=== PATIENT | female | born 1995 | race Caucasian/White ===

== ENCOUNTER 2022-08-14 10:37 | Emergency (ER) | payer OTHER ==
[~2022-08-14] VITALS: Ht 157.5 cm; Wt 72.1 kg
[2022-08-14] MEDS ORDERED: CLARITIN5 MG PO (10:58)
[2022-08-14] MEDS ORDERED: PROAIR RESPICL90 MCG IH (10:58)
== END 2022-08-14 14:55 | disposition home or self-care (01) ==
LOC: ER 10:37
DX: K29.70 Gastritis, unspecified, without bleeding (principal); Z20.822 Contact with and (suspected) exposure to COVID-19

== ENCOUNTER 2022-09-28 23:22 | Emergency (ER) | payer OTHER ==
[~2022-09-28] VITALS: Ht 157.5 cm; Wt 71.7 kg
[~2022-09-28 23:22] MED LIST: CLARITIN5 MG PO; PROAIR RESPICL90 MCG IH
[2022-09-28] MEDS ORDERED: CLARITIN10 M1 PO (23:59)
[2022-09-29] MEDS ORDERED: TENCON 50-3251 EACH PO ×2 (04:24→04:26)
== END 2022-09-29 04:35 ==
LOC: ER 23:22
DX: G43.109 Migraine with aura, not intractable, without status migrainosus (principal)

== ENCOUNTER 2023-06-28 11:24 | Outpatient (CLI) | payer OTHER ==
[~2023-06-28 11:24] MED LIST changes: +CLARITIN10 M1 PO; +TENCON 50-3251 EACH PO
[2023-06-28 11:46] LABS: HEMATOCRIT 39.3 % (36.0-45.00); HEMOGLOBIN 13.1 g/dL (12.0-15.00); MEAN CELL VOLUME 77.2 fL (80.00-100.00); MEAN CORPUSCULAR HEMOGLOBIN 25.7 pg (27.00-32.0); MEAN CORPUSCULAR HGB CONC 33.2 g/dl (32.0-36.0); PLATELET COUNT 342 K/uL (150-450); RED BLOOD COUNT 5.09 M/uL (4.00-6.00); RED CELL DISTRIBUTION WIDTH 13.8 % (11.5-14.5)
[2023-06-28 12:44] LABS: MYCOPLASMA PNEUMONIAE IGM NON REACTIVE (NO REACTIVE)
== END 2023-06-28 11:25 | disposition home or self-care (01) ==
LOC: LAB 11:24
DX: U07.1 COVID-19 (principal); R50.9 Fever, unspecified

== ENCOUNTER 2023-10-25 09:48 | Emergency (ER) | payer OTHER ==
[~2023-10-25] VITALS: Ht 157.5 cm; Wt 72.1 kg
[2023-10-25] MEDS ORDERED: VERAPAMIL HCL120 M3 PO (10:28)
[2023-10-25] MEDS ORDERED: ETODOLAC400 MG PO (10:29)
[2023-10-25] MEDS ORDERED: MONTELUKAST SOD10 MG PO (10:29)
[2023-10-25] MEDS ORDERED: ELETRIPTAN HBR40 MG PO (10:30)
[2023-10-25 11:15] LABS: HEMATOCRIT 40.7 % (36.0-45.00); HEMOGLOBIN 13.8 g/dL (12.0-15.00); MEAN CELL VOLUME 77.8 fL (80.00-100.00); MEAN CORPUSCULAR HEMOGLOBIN 26.4 pg (27.00-32.0); MEAN CORPUSCULAR HGB CONC 33.9 g/dl (32.0-36.0); PLATELET COUNT 284 K/uL (150-450); RED BLOOD COUNT 5.23 M/uL (4.00-6.00); RED CELL DISTRIBUTION WIDTH 13.2 % (11.5-14.5)
[2023-10-25 11:23] LABS: URINE APPEARANCE Cloudy; URINE BILIRRUBIN Negative (NEGATIVE); URINE BLOOD NHT; URINE COLOR Yellow; URINE GLUCOSE Negative (NEGATIVE); URINE LEUKOCYTE Negative; URINE NITRATE Negative; URINE PROTEIN Negative (NEGATIVE); URINE UROBILINOGEN 0.2 E.U./dl
[2023-10-25 11:27] LABS: URINE EPITHELIAL CELLS 39.8 uL (0.0-38.8); URINE RBC 84.9 uL (0.0-20.8); URINE WBC 106.6 uL (0.0-23.2)
[2023-10-25 11:31] LABS: URINE BACTERIA > 9821.5 uL (0.0-1933)
[2023-10-25 11:47] LABS: CALCIUM 9.2 mg/dL (8.5-10.1); CREATININE SERUM 0.8 mg/dL (0.55-1.02); GFR 85.41; POTASSIUM 3.78 mEq/L (3.5-5.1)
[2023-10-25] MEDS ORDERED: KETOROLAC TROMETHAMINE 30 MG VIAL IM STA (12:09)
== END 2023-10-25 12:36 | disposition home or self-care (01) ==
LOC: ER 09:48
PROVIDERS: General Practice
DX: N39.0 Urinary tract infection, site not specified (principal)

== ENCOUNTER 2023-12-12 07:39 | Emergency (ER) | payer OTHER ==
[~2023-12-12] VITALS: Ht 157.5 cm; Wt 72.1 kg
[~2023-12-12 07:39] MED LIST changes: +ELETRIPTAN HBR40 MG PO; +ETODOLAC400 MG PO; +MONTELUKAST SOD10 MG PO; +VERAPAMIL HCL120 M3 PO
[2023-12-12] MEDS ORDERED: VERELAN PM100 MG (08:00)
[2023-12-12] MEDS ORDERED: METHYLPREDNISOLONE SOD SUCC 125 MG VIAL IM ONE (08:15)
[2023-12-12] MEDS ORDERED: CEFTRIAXONE SODIUM 1,000 MG VIAL IM ONE (08:15)
[2023-12-12] MEDS ORDERED: DIPHENHYDRAMINE HCL 50 MG/ML VIAL 1ML IM ONE (08:15)
[2023-12-12] MEDS ORDERED: KETOROLAC TROMETHAMINE 60 MG VIAL IM ONE (08:45)
[2023-12-12 09:06] LABS: HEMATOCRIT 41.1 % (36.0-45.00); HEMOGLOBIN 13.8 g/dL (12.0-15.00); MEAN CELL VOLUME 77.1 fL (80.00-100.00); MEAN CORPUSCULAR HEMOGLOBIN 25.9 pg (27.00-32.0); MEAN CORPUSCULAR HGB CONC 33.6 g/dl (32.0-36.0); PLATELET COUNT 363 K/uL (150-450); RED BLOOD COUNT 5.32 M/uL (4.00-6.00); RED CELL DISTRIBUTION WIDTH 14.4 % (11.5-14.5)
== END 2023-12-12 09:39 | disposition home or self-care (01) ==
LOC: ER 07:39
PROVIDERS: General Practice
DX: S90.862A Insect bite (nonvenomous), left foot, initial encounter (principal); W57.XXXA Bitten or stung by nonvenomous insect and other nonvenomous arthropods, initial encounter; Y93.89 Activity, other specified; Y99.8 Other external cause status; Z87.09 Personal history of other diseases of the respiratory system; I10 Essential (primary) hypertension

== ENCOUNTER 2023-12-17 16:26 | Emergency (ER) | payer OTHER ==
[~2023-12-17] VITALS: Ht 157.5 cm; Wt 72.1 kg
[~2023-12-17 16:26] MED LIST changes: +VERELAN PM100 MG
[2023-12-17] MEDS ORDERED: CLINDAMYCIN PHOSPHATE 150 MG/ML (600mg) IM STA (20:03)
== END 2023-12-17 21:09 | disposition home or self-care (01) ==
LOC: ER 16:27
DX: L03.116 Cellulitis of left lower limb (principal)

== ENCOUNTER 2024-05-28 18:06 | Emergency (ER) | payer OTHER ==
[~2024-05-28] VITALS: Ht 157.5 cm; Wt 73.0 kg
[2024-05-28] MEDS ORDERED: ONDANSETRON HCL 2 MG/ML VIAL IV STA (18:53)
[2024-05-28] MEDS ORDERED: FAMOTIDINE/PF 20 MG in 0.9 % SODIUM CHLORIDE 8 ML IV PUSH STA (18:54)
[2024-05-28] MEDS ORDERED: FAMOTIDINE/PF 20 MG/2 ML VIAL ONE (18:59)
[2024-05-28] MEDS ORDERED: ONDANSETRON HCL 2 MG/ML VIAL ONE (18:59)
[2024-05-28] MEDS ORDERED: MEPERIDINE HCL/PF 50 MG/ML VIAL IM ONE (19:00)
== END 2024-05-28 21:17 | disposition home or self-care (01) ==
LOC: ER 18:07
DX: G43.909 Migraine, unspecified, not intractable, without status migrainosus (principal); R11.10 Vomiting, unspecified; Z88.0 Allergy status to penicillin

== ENCOUNTER 2024-08-27 22:09 | Emergency (ER) | payer OTHER ==
[~2024-08-27] VITALS: Ht 157.5 cm; Wt 71.2 kg
[2024-08-27] MEDS ORDERED: BENZONATATE 100 MG CAPSULE PO ONE (22:30)
[2024-08-27] MEDS ORDERED: METHYLPREDNISOLONE SOD SUCC 40 MG VIAL IM ONE (22:30)
[2024-08-27] MEDS ORDERED: LEVALBUTEROL HCL 0.63 MG/3 ML SOLUTION IH SCH (22:30)
[2024-08-27] MEDS ORDERED: IPRATROPIUM BROMIDE 0.5 MG/2.5 ML AMPUL.NEB IH ONE (22:30)
[2024-08-27] MEDS ORDERED: MAGNESIUM SULFATE IN WATER 2 GM/50 ML PIGGYBAG IV ONE (22:30)
[2024-08-27 22:52] LABS: ABG PH 7.406 (7.35-7.45); ABG PO2 73.3 mmHg (80-100); ABG pCO2 36.6 mmHg (35-45); BASE EXCESS -1.7 mmol/l; BICARBONATE 22.4 mmol/l (23-25); SaO2 94.5 %; Tco2 23.6 mmol/l
[2024-08-27 22:53] LABS: allen test SATISFACTORY; puncture site RADIAL RIGHT
[2024-08-27 22:54] LABS: o2 21 %
[2024-08-27 23:41] LABS: HEMATOCRIT 38.5 % (36.0-45.00); HEMOGLOBIN 12.9 g/dL (12.0-15.00); MEAN CELL VOLUME 78.4 fL (80.00-100.00); MEAN CORPUSCULAR HEMOGLOBIN 26.3 pg (27.00-32.0); MEAN CORPUSCULAR HGB CONC 33.5 g/dl (32.0-36.0); PLATELET COUNT 358 K/uL (150-450); RED BLOOD COUNT 4.91 M/uL (4.00-6.00); RED CELL DISTRIBUTION WIDTH 13.8 % (11.5-14.5)
[2024-08-28] MEDS ORDERED: ZITHROMAX500 MG PO (02:37)
[2024-08-28] MEDS ORDERED: ZYNCOF 20-400120 ML PO (02:37)
[2024-08-28] MEDS ORDERED: SINGULAIR10 MG PO (02:38)
== END 2024-08-28 02:47 ==
LOC: ER 22:12
PROVIDERS: General Practice
DX: J45.901 Unspecified asthma with (acute) exacerbation (principal); J06.9 Acute upper respiratory infection, unspecified; Z20.822 Contact with and (suspected) exposure to COVID-19; Z88.0 Allergy status to penicillin

== ENCOUNTER 2024-12-05 16:31 | Outpatient (CLI) | payer OTHER ==
[~2024-12-05 16:31] MED LIST changes: +SINGULAIR10 MG PO; +ZITHROMAX500 MG PO; +ZYNCOF 20-400120 ML PO
[2024-12-05 16:54] LABS: HEMATOCRIT 41.1 % (36.0-45.00); HEMOGLOBIN 13.6 g/dL (12.0-15.00); MEAN CORPUSCULAR HEMOGLOBIN 25.8 pg (27.00-32.0); PLATELET COUNT 349 K/uL (150-450); RED BLOOD COUNT 5.27 M/uL (4.00-6.00); RED CELL DISTRIBUTION WIDTH 13.4 % (11.5-14.5)
[2024-12-05 16:55] LABS: PH,URINE 6.5 (5.0-8.0); URINE APPEARANCE Clear; URINE BILIRRUBIN Negative (NEGATIVE); URINE BLOOD Negative; URINE COLOR Yellow; URINE GLUCOSE Negative (NEGATIVE); URINE KETONE Negative (NEGATIVE); URINE LEUKOCYTE Negative; URINE NITRATE Negative; URINE PROTEIN Negative (NEGATIVE); URINE UROBILINOGEN 0.2 E.U./dl
[2024-12-05 16:59] LABS: URINE BACTERIA 156.5 uL (0.0-1933); URINE EPITHELIAL CELLS 6.4 uL (0.0-38.8); URINE RBC 8.2 uL (0.0-20.8); URINE WBC 5.6 uL (0.0-23.2)
[2024-12-05 18:47] LABS: ALBUMIN 4.5 gm/dL (3.4-5.0); BILIRUBIN TOTAL 0.2 mg/dL (0.3-1.2); CALCIUM 9.2 mg/dL (8.5-10.1); CHOL HDL RATIO 3.6 (0-5.0); CREATININE SERUM 0.66 mg/dL (0.55-1.02); GFR 105.88; GLOBULINA 3.3 G/DL (2.4-3.5); POTASSIUM 4.22 mEq/L (3.5-5.1); T4 FREE 0.81 NG/ML (0.76-1.46); TOTAL PROTEIN 7.8 gm/dL (6.4-8.2); TSH 1.74 uIU/mL (0.358-3.74)
== END 2024-12-05 16:35 | disposition home or self-care (01) ==
LOC: LAB 16:31
PROVIDERS: ATTEND Obstetrics & Gynecology
DX: I10 Essential (primary) hypertension (principal); E03.1 Congenital hypothyroidism without goiter; N91.1 Secondary amenorrhea; E66.3 Overweight

== ENCOUNTER 2025-02-02 09:04 | Emergency (ER) | payer OTHER ==
[~2025-02-02] VITALS: Ht 157.5 cm; Wt 74.8 kg
[2025-02-02] MEDS ORDERED: VERAPAMIL ER120 MG (09:27)
[2025-02-02] MEDS ORDERED: SUMATRIPTAN SUCCINATE 6 MG/0.5 ML VIAL SUBCUTANEO STA (10:17)
[2025-02-02] MEDS ORDERED: METOCLOPRAMIDE HCL 10 MG in 0.9 % SODIUM CHLORIDE 50 ML IV ONE (10:30)
[2025-02-02 10:41] LABS: BASO % 0.3 % (0.1-1.2); EOS # 0.03 (0.04-0.54); EOS % 0.3 % (0.7-7.0); HEMATOCRIT 42.9 % (34.1-44.9); HEMOGLOBIN 14.2 g/dL (11.2-15.7); LYMPH % 15.4 % (19.3-53.1); MEAN CORPUSCULAR HEMOGLOBIN 25.3 pg (25.6-32.2); MONO # 0.28 (0.24-0.82); MONO % 2.9 % (4.7-12.5); NEUT # 7.89 (1.56-6.13); NEUT % 80.9 % (34.0-71.1); PLATELET COUNT 390 K/uL (163-369); RED BLOOD COUNT 5.61 M/uL (3.93-5.22); RED CELL DISTRIBUTION WIDTH 13.2 % (11.6-14.4)
== END 2025-02-02 12:02 | disposition home or self-care (01) ==
LOC: ER 09:22
PROVIDERS: General Practice
DX: R51.9 Headache, unspecified (principal); R11.10 Vomiting, unspecified; Z88.0 Allergy status to penicillin

== ENCOUNTER 2025-02-22 09:28 | Outpatient (CLI) | payer OTHER ==
[~2025-02-22 09:28] MED LIST changes: +VERAPAMIL ER120 MG
== END 2025-02-22 09:31 | disposition home or self-care (01) ==
LOC: RAD 09:28
PROVIDERS: ATTEND Specialist
DX: J45.40 Moderate persistent asthma, uncomplicated (principal)

== ENCOUNTER → 2025-02-22 09:58 | Outpatient (CLI) | payer OTHER | END | disposition home or self-care (01) | LOC: LAB 09:58 | PROVIDERS: ATTEND Specialist | DX: J45.40 Moderate persistent asthma, uncomplicated (principal) ==

== ENCOUNTER 2025-03-08 08:51 | Outpatient (CLI) | payer OTHER ==
[2025-03-08 10:35] LABS: BASO % 0.3 % (0.1-1.2); EOS # 0.16 (0.04-0.54); EOS % 2.7 % (0.7-7.0); HEMATOCRIT 41.4 % (34.1-44.9); HEMOGLOBIN 13.5 g/dL (11.2-15.7); LYMPH # 1.61 (1.18-3.74); LYMPH % 27.2 % (19.3-53.1); MEAN CORPUSCULAR HEMOGLOBIN 25.6 pg (25.6-32.2); MONO # 0.31 (0.24-0.82); MONO % 5.2 % (4.7-12.5); NEUT # 3.81 (1.56-6.13); NEUT % 64.4 % (34.0-71.1); PLATELET COUNT 370 K/uL (163-369); RED BLOOD COUNT 5.28 M/uL (3.93-5.22)
[2025-03-08 10:41] LABS: ERYTHROCYTE SEDIMENTATION RATE 6 mm/hr (0-20)
[2025-03-08 10:42] LABS: URINE APPEARANCE Clear; URINE BILIRRUBIN Negative (NEGATIVE); URINE BLOOD Negative; URINE COLOR Yellow; URINE GLUCOSE Negative (NEGATIVE); URINE KETONE Negative (NEGATIVE); URINE LEUKOCYTE Negative; URINE NITRATE Negative; URINE PROTEIN Negative (NEGATIVE); URINE UROBILINOGEN 0.2 E.U./dl
[2025-03-08 10:43] LABS: URINE BACTERIA 409.9 uL (0.0-1933); URINE EPITHELIAL CELLS 20.7 uL (0.0-38.8); URINE RBC 7.5 uL (0.0-20.8)
[2025-03-08 11:16] LABS: PARTIAL THROMBOPLASTIN TIME 28.6 SECONDS (22.0-34.0); PROTHROMBIN TIME 10.9 SECONDS (9.0-11.5)
[2025-03-08 11:31] LABS: ALBUMIN 4.1 gm/dL (3.4-5.0); BILIRUBIN TOTAL 0.41 mg/dL (0.3-1.2); CALCIUM 9.2 mg/dL (8.5-10.1); CHOL HDL RATIO 3.3 (0-5.0); CREATININE SERUM 0.68 mg/dL (0.55-1.02); GFR 101.59; GLOBULINA 3.3 G/DL (2.4-3.5); POTASSIUM 4.3 mEq/L (3.5-5.1); T4 FREE 0.98 NG/ML (0.76-1.46); TOTAL PROTEIN 7.4 gm/dL (6.4-8.2); TSH 1.62 uIU/mL (0.358-3.74)
[2025-03-08 12:11] LABS: ob POSITIVE (NEGATIVE)
== END 2025-03-08 08:58 | disposition home or self-care (01) ==
LOC: LAB 08:51
PROVIDERS: ATTEND Internal Medicine
DX: D64.9 Anemia, unspecified (principal); E11.8 Type 2 diabetes mellitus with unspecified complications; I48.91 Unspecified atrial fibrillation; N39.0 Urinary tract infection, site not specified; E03.9 Hypothyroidism, unspecified; M35.1 Other overlap syndromes; E11.9 Type 2 diabetes mellitus without complications; E55.9 Vitamin D deficiency, unspecified; Z12.11 Encounter for screening for malignant neoplasm of colon; E78.2 Mixed hyperlipidemia

== ENCOUNTER 2025-03-28 10:08 | Outpatient (CLI) | payer OTHER | END 2025-03-28 10:14 | disposition home or self-care (01) | LOC: RAD 10:08 | PROVIDERS: ATTEND Internal Medicine | DX: M54.2 Cervicalgia (principal); M54.12 Radiculopathy, cervical region ==

== ENCOUNTER 2025-03-28 10:41 | Outpatient (CLI) | payer OTHER | END 2025-03-28 10:42 | disposition home or self-care (01) | LOC: LAB 10:41 | PROVIDERS: ATTEND Obstetrics & Gynecology | DX: N91.1 Secondary amenorrhea (principal) ==

== ENCOUNTER 2025-05-17 08:45 | Outpatient (CLI) | payer OTHER ==
[~2025-05-17 08:45] MED LIST changes: +DICLOFENAC POTA50 MG PO
[2025-05-17 10:30] LABS: BASO % 0.3 % (0.1-1.2); EOS # 0.15 (0.04-0.54); EOS % 2.1 % (0.7-7.0); LYMPH # 1.99 (1.18-3.74); LYMPH % 28.3 % (19.3-53.1); MEAN PLATELET VOLUME 9.20 fl (9.4-12.4); MONO # 0.45 (0.24-0.82); MONO % 6.4 % (4.7-12.5); NEUT # 4.41 (1.56-6.13); NEUT % 62.6 % (34.0-71.1); RED CELL DISTRIBUTION WIDTH 13.0 % (11.6-14.4)
[2025-05-17 11:19] LABS: ALT/SGPT 22.0 U/L (12-78); AST/SGOT 11.0 U/L (15-37); BILIRUBIN TOTAL 0.48 mg/dL (0.3-1.2); BUN CREA RATIO 13.0 (7.0-25.0); CREATININE SERUM 0.68 mg/dL (0.55-1.02); GFR 101.59; GLOBULINA 3.1 G/DL (2.4-3.5); GLUCOSE FASTING 78.0 mg/dL (65-100); OSMOLALITY SERUM 279.0 MOSM/KG (275-295)
== END 2025-05-17 08:46 | disposition home or self-care (01) ==
LOC: LAB 08:45
PROVIDERS: ATTEND Neuromusculoskeletal Medicine & OMM
DX: G43.009 Migraine without aura, not intractable, without status migrainosus (principal)

== ENCOUNTER → 2025-06-13 | Outpatient (CLI) | payer OTHER | END | disposition home or self-care (01) | LOC: MRI 08:38 | PROVIDERS: ATTEND Neuromusculoskeletal Medicine & OMM | DX: G43.009 Migraine without aura, not intractable, without status migrainosus (principal); G90.4 Autonomic dysreflexia | CPT/HCPCS: 70553 ==

== ENCOUNTER 2025-08-03 07:51 | Emergency (ER) | payer OTHER ==
[~2025-08-03] VITALS: Ht 157.5 cm; Wt 74.8 kg
[2025-08-03] MEDS ORDERED: 0.9 % SODIUM CHLORIDE 1,000 ML IV STA (08:40)
[2025-08-03] MEDS ORDERED: ONDANSETRON HCL 2 MG/ML VIAL IV STA (08:41)
[2025-08-03] MEDS ORDERED: FAMOTIDINE/PF 20 MG/2 ML VIAL IV STA (08:41)
[2025-08-03] MEDS ORDERED: SODIUM CHLORIDE FOR INHALATION 1 VIAL.NEB IH STA (08:47)
[2025-08-03] MEDS ORDERED: ONDANSETRON HCL 2 MG/ML VIAL ONE (09:13)
[2025-08-03] MEDS ORDERED: FAMOTIDINE/PF 20 MG/2 ML VIAL ONE (09:14)
[2025-08-03 09:28] LABS: BASO % 0.3 % (0.1-1.2); EOS # 0.08 (0.04-0.54); EOS % 0.7 % (0.7-7.0); LYMPH # 1.17 (1.18-3.74); LYMPH % 10.9 % (19.3-53.1); MEAN PLATELET VOLUME 8.90 fl (9.4-12.4); MONO # 0.34 (0.24-0.82); MONO % 3.2 % (4.7-12.5); NEUT # 9.03 (1.56-6.13); NEUT % 84.5 % (34.0-71.1); RED CELL DISTRIBUTION WIDTH 13.2 % (11.6-14.4)
[2025-08-03 09:52] LABS: ALT/SGPT 26.0 U/L (12-78); AST/SGOT 16.0 U/L (15-37); BILIRUBIN TOTAL 0.52 mg/dL (0.3-1.2); BUN CREA RATIO 11.0 (7.0-25.0); CREATININE SERUM 0.82 mg/dL (0.55-1.02); GFR 81.85; GLOBULINA 3.9 G/DL (2.4-3.5); GLUCOSE FASTING 93.0 mg/dL (65-100); OSMOLALITY SERUM 278.0 MOSM/KG (275-295)
[2025-08-03 11:03] LABS: URINE APPEARANCE Cloudy; URINE BILIRRUBIN Negative (NEGATIVE); URINE BLOOD Moderate; URINE COLOR Yellow; URINE GLUCOSE Negative (NEGATIVE); URINE KETONE Negative (NEGATIVE); URINE LEUKOCYTE Moderate; URINE NITRATE Negative; URINE PROTEIN Negative (NEGATIVE); URINE UROBILINOGEN 0.2 E.U./dl
[2025-08-03 11:07] LABS: URINE BACTERIA 2241.5 uL (0.0-1933); URINE EPITHELIAL CELLS 106.6 uL (0.0-38.8); URINE RBC 15.2 uL (0.0-20.8); URINE WBC 90.0 uL (0.0-23.2)
[2025-08-03] MEDS ORDERED: SODIUM CHLORIDE FOR INHALATION 1 VIAL.NEB IH ONE (11:09)
[2025-08-03 11:18] LABS: COVID-19 AG NEGATIVE (NEGATIVE)
[2025-08-03 11:28] LABS: URINE CAST 0.14 uL (0.0-1.40)
[2025-08-03] MEDS ORDERED: CIPROFLOXACIN IN 5 % DEXTROSE 400 MG/200 ML PIGGYBAG IV STA (13:01)
[2025-08-03] MEDS ORDERED: CIPROFLOXACIN IN 5 % DEXTROSE 400 MG/200 ML PIGGYBAG IV ONE (14:27)
[2025-08-03] MEDS ORDERED: CIPRO500 MG PO (15:02)
== END 2025-08-03 17:25 | disposition home or self-care (01) ==
LOC: ER 07:51
PROVIDERS: Physician Assistant Medical
DX: K52.89 Other specified noninfective gastroenteritis and colitis (principal); N39.0 Urinary tract infection, site not specified; B34.9 Viral infection, unspecified; Z20.822 Contact with and (suspected) exposure to COVID-19; Z88.0 Allergy status to penicillin; Z87.09 Personal history of other diseases of the respiratory system; I10 Essential (primary) hypertension

== ENCOUNTER 2025-08-30 08:15 | Outpatient (CLI) | payer OTHER ==
[~2025-08-30 08:15] MED LIST changes: +CIPRO500 MG PO
[2025-08-30 09:31] LABS: BASO % 0.6 % (0.1-1.2); EOS # 0.19 (0.04-0.54); EOS % 3.7 % (0.7-7.0); LYMPH # 1.86 (1.18-3.74); LYMPH % 36.0 % (19.3-53.1); MEAN PLATELET VOLUME 9.00 fl (9.4-12.4); MONO # 0.40 (0.24-0.82); MONO % 7.7 % (4.7-12.5); NEUT # 2.68 (1.56-6.13); NEUT % 51.8 % (34.0-71.1); RED CELL DISTRIBUTION WIDTH 12.9 % (11.6-14.4)
[2025-08-30 09:48] LABS: ERYTHROCYTE SEDIMENTATION RATE 12 mm/hr (0-20)
[2025-08-30 10:49] LABS: ALT/SGPT 42.0 U/L (12-78); AST/SGOT 24.0 U/L (15-37); BILIRUBIN TOTAL 0.44 mg/dL (0.3-1.2); BUN CREA RATIO 11.0 (7.0-25.0); CHOL HDL RATIO 4.1 (0-5.0); CREATININE SERUM 0.8 mg/dL (0.55-1.02); GFR 84.22; GLOBULINA 3.3 G/DL (2.4-3.5); GLUCOSE FASTING 86.0 mg/dL (65-100); HDL 38.0 mg/dl (40-60); LDL 102.0 mg/dl (0-130); OSMOLALITY SERUM 277.0 MOSM/KG (275-295); TSH 1.56 uIU/mL (0.358-3.74); VLDL 14.0 (0-39)
[2025-09-02 10:07] LABS: HOMOCYSTEINE 8.0 umol/L (0.0-14.5); PROLACTIN 17.3 ng/mL (4.8-33.4)
== END 2025-08-30 08:19 | disposition home or self-care (01) ==
LOC: LAB 08:15
DX: R42 Dizziness and giddiness (principal); R51.9 Headache, unspecified; D64.9 Anemia, unspecified; M06.9 Rheumatoid arthritis, unspecified; E03.9 Hypothyroidism, unspecified; G43.009 Migraine without aura, not intractable, without status migrainosus; G90.4 Autonomic dysreflexia